=== PATIENT | female | born 2000 | race Caucasian/White ===

== ENCOUNTER 2022-01-03 08:51 | Emergency (ER) | payer OTHER ==
[~2022-01-03] VITALS: Ht 154.9 cm; Wt 73.1 kg
[2022-01-03 09:02] VITALS: BP 147/98
--- NOTE | 2022-01-03 09:07 | NUR ---
PT TO [facility]
--- NOTE | 2022-01-03 09:40 | NUR ---
21/F PRESENTS TO ED WITH C/O LEFT EAR PAIN X1 WEEK, DENIES OTHER COLD SYMPTOMS, REPORTS USING EAR DROPS WITH NO RELIEF.
[2022-01-03] MEDS ORDERED: LIDO100S LEFT EAR (10:45)
[2022-01-03 10:50] VITALS: BP 147/98
--- NOTE | 2022-01-03 10:50 | NUR ---
Patient discharged with v/s stable. Written and verbal after care instructions ABOUT OTITIS [facility]TERNA given and explained. Patient alert, oriented and verbalized understanding of instructions. Ambulatory with steady gait. All questions addressed prior to discharge. ID band removed. Patient advised to follow up with PMD. Rx of LIDOCAINE VISCOUS given. Patient educated on indication of medication including possible reaction and side effects. Opportunity to ask questions provided and answered.
== END 2022-01-03 10:50 | disposition home or self-care (01) ==
LOC: MED 08:51
DX: H66.92 Otitis media, unspecified, left ear (principal)
CPT/HCPCS: 99283